=== PATIENT | female | born 1965 | race African-American/Black ===

== ENCOUNTER 2017-03-15 00:54 | Emergency (ER) | payer SELFPAY ==
[~2017-03-15] VITALS: Ht 162.6 cm; Wt 61.5 kg
[~2017-03-15 00:54] MED LIST: ASPI-676; BEN25 PO; CARV25TA43; CHOL100062; ENAL20TA73; FERR250C3; HYDR25TA6; LABE100T3; LEVA15HF6; SIMV20TA2
[2017-03-15 01:04] VITALS: Ht 162.6 cm; Wt 61.5 kg
[2017-03-15 01:39] VITALS: BP 167/96; PULSE 72; RESP 20
== END 2017-03-15 01:46 | disposition left against medical advice (07) ==
LOC: E/R 00:54
DX: Z53.21 Procedure and treatment not carried out due to patient leaving prior to being seen by health care provider (principal)

== ENCOUNTER 2017-03-28 18:58 | Inpatient (IN) | payer OTHER ==
[~2017-03-28] VITALS: Ht 162.6 cm; Wt 62.5 kg
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
[2017-03-28 19:34] LABS: BASOPHILS % 0.5 % (0.0-2.0); EOSINOPHILS # 0.1 10^3/ul (0.0-0.5); EOSINOPHILS % 1.5 % (0.0-7.0); HEMATOCRIT 37.3 % (37.0-47.0); HEMOGLOBIN 12.3 g/dl (12.0-16.0); LYMPHOCYTES # 1.7 10^3/ul (0.8-2.9); LYMPHOCYTES % 27.7 % (15.0-51.0); MEAN CORPUSCULAR HEMOGLOBIN 28.8 pg (29.0-33.0); MEAN CORPUSCULAR VOLUME 87.4 fl (82.0-101.0); MONOCYTE # 0.5 10^3/ul (0.3-0.9); MONOCYTES % 7.8 % (0.0-11.0); NEUTROPHILS % 62.2 % (39.0-77.0); PLATELET COUNT 236 10^3/UL (140-415); RED BLOOD COUNT 4.27 10^6/ul (4.20-5.40); RED CELL DISTRIBUTION WIDTH 13.3 % (11.5-14.5)
[2017-03-28 19:53] LABS: INR 0.9; PROTIME 12.1 Sec (12.2-14.2); PT RATIO 0.9
[2017-03-28 19:54] LABS: PARTIAL THROMBOPLASTIN TIME 31.5 Sec (25.0-35.0)
[2017-03-28 19:57] LABS: ALANINE AMINOTRANSFERASE 38 IU/L (13-69); ALBUMIN 4.5 g/dl (3.3-4.9); ALBUMIN/GLOBULIN RATIO 1.55; ALKALINE PHOSPHATASE 259 IU/L (42-121); ANION GAP 11 (8-16); ASPARTATE AMINO TRANSFERASE 30 IU/L (15-46); BILIRUBIN,INDIRECT 0.6 mg/dl (0-1.1); BILIRUBIN,TOTAL 0.6 mg/dl (0.2-1.3); BLOOD UREA NITROGEN 15 mg/dl (7-20); CALCIUM 9.9 mg/dl (8.4-10.2); CARBON DIOXIDE 31 mmol/L (21-31); CHLORIDE 104 mmol/L (97-110); CREATININE 1.29 mg/dl (0.44-1.00); ETHANOL < 10.0 mg/dl; GLUCOSE 97 mg/dl (70-220); POTASSIUM 4.2 mmol/L (3.5-5.1); SODIUM 142 mmol/L (135-144); TOTAL PROTEIN 7.4 g/dl (6.1-8.1)
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
[2017-03-28 20:07] LABS: TROPONIN-I 0.022 ng/ml (0.00-0.12)
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
[2017-03-28] MEDS ORDERED: CARV25TA79 PO (20:36)
[2017-03-28] MEDS ORDERED: HYD25 PO (20:37)
[2017-03-28] MEDS ORDERED: ENAL20TA PO (20:37)
[2017-03-28] MEDS ORDERED: GABA-526 PO (20:38)
[2017-03-28] MEDS ORDERED: CHOL100062 PO (20:38)
[2017-03-28 20:50] LABS: ADD UMIC YES; UR ASCORBIC ACID NEGATIVE (NEGATIVE); UR BILIRUBIN (Dip) NEGATIVE (NEGATIVE); UR BLOOD (Dip) NEGATIVE (NEGATIVE); UR CLARITY CLEAR (CLEAR); UR COLOR YELLOW (YELLOW); UR GLUCOSE (Dip) NEGATIVE (NEGATIVE); UR KETONES (Dip) NEGATIVE (NEGATIVE); UR LEUKOCYTE ESTERASE (Dip) NEGATIVE Leu/ul (NEGATIVE); UR NITRITE (Dip) NEGATIVE (NEGATIVE); UR RBC 1 /HPF (0-5); UR SPECIFIC GRAVITY (Dip) 1.014 (1.003-1.030); UR SQUAMOUS EPITHELIAL CELL FEW /HPF (FEW); UR TOTAL PROTEIN (Dip) 1+ mg/dl (NEGATIVE); UR UROBILINOGEN (Dip) 1+ mg/dL (NEGATIVE)
[2017-03-28] MEDS ORDERED: ASPIRIN 81 MG TAB PO ONE (21:00)
[2017-03-28] MEDS ORDERED: LABETALOL HCL 20MG INJ IV ONE (21:00)
[2017-03-28 21:08] LABS: BARBITURATES Negative (NEGATIVE); BENZODIAZEPINES Negative (NEGATIVE); CANNABINOIDS Positive (NEGATIVE); COCAINE Negative (NEGATIVE); OPIATES Negative (NEGATIVE)
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
[2017-03-28 22:22] VITALS: TEMP 98.9
[2017-03-28] MEDS ORDERED: METOCLOPRAMIDE 10 MG INJ IV ONE (22:30)
[2017-03-28] MEDS ORDERED: DIAZEPAM 5 MG/ML SYG IV ONE (22:30)
[2017-03-28] MEDS ORDERED: ACETAMINOPHEN 325 MG TAB PO PRN (23:00)
[2017-03-28] MEDS ORDERED: ONDANSETRON 4 MG INJ IV PRN (23:00)
[2017-03-29] VITALS (11 sets, daily range): BP systolic 136–179; BP diastolic 84–128; PULSE 62–74; RESP 16–18; Ht 162.6 cm; Wt 62.5 kg
[2017-03-29] MEDS ORDERED: DOCUSATE SODIUM 100 MG CAP PO PRN (05:30)
[2017-03-29] MEDS ORDERED: ONDANSETRON 4 MG INJ IV PRN (05:30)
[2017-03-29] MEDS ORDERED: ACETAMINOPHEN 325 MG TAB PO PRN (05:30)
[2017-03-29] MEDS ORDERED: BISACODYL (EC) 5 MG TAB PO PRN (05:30)
[2017-03-29] MEDS ORDERED: NACL 0.9% 3 ML SYG IV SCH (05:30)
[2017-03-29 08:14] LABS: ALBUMIN 3.8 g/dl (3.3-4.9); ALBUMIN/GLOBULIN RATIO 1.58; BILIRUBIN,INDIRECT 0.8 mg/dl (0-1.1); BILIRUBIN,TOTAL 0.8 mg/dl (0.2-1.3); CALCIUM 9.7 mg/dl (8.4-10.2); CHOL/HDL RATIO 3.9 RATIO; CREATININE 1.14 mg/dl (0.44-1.00); MAGNESIUM 1.9 mg/dl (1.7-2.5); POTASSIUM 4.3 mmol/L (3.5-5.1); TOTAL PROTEIN 6.2 g/dl (6.1-8.1)
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
[2017-03-29 08:41] LABS: THYROID STIMULATING HORMONE 1.93 MIU/L (0.465-4.680)
[2017-03-29 08:45] LABS: BASOPHILS % 0.2 % (0.0-2.0); EOSINOPHILS # 0.1 10^3/ul (0.0-0.5); EOSINOPHILS % 2.3 % (0.0-7.0); HEMATOCRIT 35.1 % (37.0-47.0); HEMOGLOBIN 12.1 g/dl (12.0-16.0); LYMPHOCYTES # 1.6 10^3/ul (0.8-2.9); LYMPHOCYTES % 36.3 % (15.0-51.0); MEAN CORPUSCULAR HEMOGLOBIN 30.1 pg (29.0-33.0); MEAN CORPUSCULAR HGB CONC 34.5 g/dl (32.0-37.0); MEAN CORPUSCULAR VOLUME 87.3 fl (82.0-101.0); MEAN PLATELET VOLUME 11.4 fl (7.4-10.4); MONOCYTE # 0.4 10^3/ul (0.3-0.9); MONOCYTES % 9.5 % (0.0-11.0); NEUTROPHILS % 51.5 % (39.0-77.0); PLATELET COUNT 210 10^3/UL (140-415); RED BLOOD COUNT 4.02 10^6/ul (4.20-5.40); WHITE BLOOD COUNT 4.4 10^3/ul (4.8-10.8)
[2017-03-29] MEDS: CYCLOBENZAPRINE 10 MG TAB PO SCH ×4 (09:00→21:09)
[2017-03-29] MEDS: GABAPENTIN 300 MG CAP PO SCH ×3 (09:05→21:06)
[2017-03-29] MEDS: FAMOTIDINE 20 MG TAB PO SCH ×2 (09:06→21:10)
[2017-03-29] MEDS ORDERED: hydrALAzine 20 MG INJ IV PRN (10:30)
[2017-03-29] MEDS ORDERED: IOHEXOL 100 ML ONE (10:47)
[2017-03-29] MEDS ORDERED: SOD CHLORIDE 0.9% 100 ML ONE (10:47)
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
--- NOTE | 2017-03-29 13:23 | RADRPT ---
Echocardiogram Report Patient Name: ANNE MARIE MARIE Gender: Female Date: 1965 Study Date: 29-Mar-2017 Incident Analyst: Donald Petersen. [facility] Location: [facility] Ref. Physician: JAROD SIMON Quality: Adequate Procedures: Transthoracic echocardiogram with complete 2D, M-Mode, and doppler examination. Indications: stroke like symptoms. 2D/M Mode Doppler Measurement Value Normal Ranges Measurement Value Normal Ranges LVIDd 2D 3.5 3.5 - 5.6 cm MV E Peak Damian 1.8 m/sec LVIDs 2D 2.4 2.1 - 4.1 cm MV A Peak Damian 0.9 m/sec LVPWd 2D 1.1 0.6 - 1.1 cm MV E/A 1.9 IVSd 2D 0.9 0.6 - 1.1 cm MV Decel Time 301 msec AoR Diam 2D 1.6 2.0 - 3.7 cm MV Decel [place] 6 EDV 2D 49.5 cm3 MV E/A 1.9 ESV 2D 13.2 cm3 MVA PHT 2.6 cm2 LA Dimen 2D 4.0 2.3 - 4.0 cm TR Peak Damian 3.0 m/sec LVOT Diam 1.5 cm TR Peak PG 40.0 mmHg RVSP 43.0 mmHg Findings Left Ventricle: Normal left ventricular systolic function. Normal left ventricular cavity size. Mild concentric left ventricular hypertrophy. Ejection fraction is visually estimated at 65 %. Tissue Doppler/Mitral Doppler indices are indeterminate in this study due to the presence of mitral valve replacement. Right Ventricle: Normal right ventricular size. Normal right ventricular systolic function. Left Atrium: Upper limit of normal left atrial size. Right Atrium: The right atrium is normal in size. Mitral Valve: No mitral valve regurgitation is seen. Mitral Valve Bio Prosthesis. Mitral valve Max Velocity 1.59 m/sec. MaxPG 10.10 mmHg. MeanPG 5.00 mmHg. Aortic Valve: No significant aortic stenosis or insufficiency. Aortic cusps appear mildly calcified. Tricuspid Valve: Normal appearance of the tricuspid valve. Estimated peak PA systolic pressure 43 mmHg. There is mild tricuspid regurgitation. Pulmonic Valve: Pulmonic valve not well visualized. Pericardium: Normal pericardium with no significant pericardial effusion. Aorta: Normal aortic root. IVC: Normal size and normal respiratory collapse consistent with normal right atrial pressure. Conclusions 1.Normal left ventricular systolic function. Normal left ventricular cavity size. Mild concentric left ventricular hypertrophy. Ejection fraction is visually estimated at 65 %. Tissue Doppler/Mitral Doppler indices are indeterminate in this study due to the presence of mitral valve replacement. 2.Normal right ventricular size. Normal right ventricular systolic function. 3.Upper limit of normal left atrial size. 4.The right atrium is normal in size. 5.Mitral Valve Bio Prosthesis. MeanPG 5.00 mmHg. 6.Estimated peak PA systolic pressure 43 mmHg. There is mild tricuspid regurgitation. 7.No significant aortic stenosis or insufficiency. 8.Normal pericardium with no significant pericardial effusion. Electronically Signed By: Basil Goode 29-Mar-2017 13:22:53 -0700 Patient Name: ANNE MARIE MARIE Study Date: 29-Mar-2017 [id number]
[2017-03-29] MEDS ORDERED: SOD CHLORIDE 0.9% 1,000 ML IV ONE (16:30)
[2017-03-30] VITALS (8 sets, daily range): BP systolic 124–145; BP diastolic 68–89; PULSE 62–70; RESP 16–18
[2017-03-30] MEDS: FAMOTIDINE 20 MG TAB PO SCH (08:24)
[2017-03-30] MEDS: CYCLOBENZAPRINE 10 MG TAB PO SCH ×2 (08:24→12:35)
[2017-03-30] MEDS: GABAPENTIN 300 MG CAP PO SCH ×2 (08:24→12:35)
--- NOTE | 2017-03-30 13:20 | PDOCDIS ---
Discharge Instructions DIAGNOSIS Discharge Diagnosis Cervical strain CONDITION Patient Condition: Good HOME CARE INSTRUCTIONS: Diet Instructions: Regular ACTIVITY: Activity Restrictions: No Restrictions FOLLOW UP/APPOINTMENTS Follow-up Plan Make an appointment with you primary doctor in the next week to review your imaging findings. It has been recommended by our radiologists that you undergo an MRI of your thoracic spine to further characterize a lesion that could be inside of your thoracic vertebrae but is not causing any acute problems. Your primary doctor should arrange this. You can take over the counter pain relievers for your neck strain. The pain will improve in the coming days. Speak with your primary care doctor if it does not. NATHALIA LORA MD Mar 30, 2017 13:20
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
== END 2017-03-30 15:15 | disposition home or self-care (01) | DRG 552 ==
LOC: E/R 18:58 → TEL 22:45
PROVIDERS: ADMIT Family Medicine; ATTEND Family Medicine
DX: S16.1XXA Strain of muscle, fascia and tendon at neck level, initial encounter (principal); I69.351 Hemiplegia and hemiparesis following cerebral infarction affecting right dominant side; I10 Essential (primary) hypertension; E78.5 Hyperlipidemia, unspecified; D64.9 Anemia, unspecified; H53.8 Other visual disturbances; I16.0 Hypertensive urgency; R47.81 Slurred speech; M54.2 Cervicalgia; V43.52XA Car driver injured in collision with other type car in traffic accident, initial encounter; Y93.9 Activity, unspecified; Y92.410 Unspecified street and highway as the place of occurrence of the external cause; Y99.8 Other external cause status; Z95.2 Presence of prosthetic heart valve
CPT/HCPCS: 36415; 70450; 70498; 71010; 72125; 80053; 80061; 80306; 80307; 81001; 82962; 83036; 83735; 84443; 84484; 84703; 85025; 85610; 85730; 86850; 86900; 86901; 93005; 93306; 96374; 96375; J0360; J2765; J3360; J7030; Q9967